=== PATIENT | female | born 1955 | race Caucasian/White ===

== ENCOUNTER 2023-11-11 02:09 | Inpatient (IN) | payer OTHER ==
[2023-11-11] VITALS (10 sets, daily range): BP systolic 109–153; BP diastolic 36–64; PULSE 99–139; RESP 15–45; O2SAT 90–100
[~2023-11-11] VITALS: Ht 175.3 cm; Wt 81.0 kg
[2023-11-11 05:27] LABS: Basophils # (auto) 0 10 ^3/uL (0-0.2); Eosinophils # (auto) 0 10 ^3/uL (0-0.8); Eosinophils % (auto) 0.1 % (0.0-7.0); Hemoglobin 12.4 g/dL (12.2-16.2); Lymphocytes # (auto) 0.4 10 ^3/uL (0.4-5.4); White Blood Cell 10.3 10^3/uL (4.4-10.8)
[2023-11-11] MEDS ORDERED: cefTRIAXone 1GM/50ML D5W 50 ML IV ONE (05:30)
[2023-11-11] MEDS ORDERED: ALBUTEROL SULF 2.5 MG/0.5ML(0.5%) NEB SOLN NEB ONE (05:30)
[2023-11-11] MEDS ORDERED: LACTATED RINGER'S 1,000 ML IV ONE (05:30)
[2023-11-11] MEDS ORDERED: DexAMETHasone SOD PHOS 10MG/1ML VIAL INJ IV ONE (05:30)
[2023-11-11] MEDS ORDERED: AZITHROMYCIN 500MG/ 250ML 250 ML IV ONE (05:30)
[2023-11-11] MEDS ORDERED: IPRATROPIUM BROM 0.5 MG/2.5ML INH SOL NEB ONE (05:30)
[2023-11-11 05:31] LABS: Basophils % (auto) 0.2 % (0.0-2.0); Hematocrit 36.8 % (36.0-46.0); Mean Corpuscular Hemoglobin 37.4 pg (28.0-32.0); Mean Corpuscular Hgb Conc. 33.8 g/dL (32.0-36.0); Mean Corpuscular Volume 110.5 fL (80.0-100.0); Monocytes # (auto) 0.6 10 ^3/uL (0-1.3); Monocytes % (auto) 5.4 % (0.0-12.0); Neutrophils # (auto) 9.3 10 ^3/uL (1.6-8.6); Neutrophils % (auto) 90.3 % (37.0-80.0); Red Blood Cells 3.33 10^6/uL (4.0-5.20); Red Cell Distribution Width 15.4 % (11.8-14.3)
[2023-11-11 05:36] LABS: Alanine Aminotransferase 31 U/L (7-40); Albumin 3.9 g/dL (3.2-4.8); Alkaline Phosphatase 82 U/L (46-116); Aspartate Aminotransferase 27 U/L (13-40); BUN/Creatinine Ratio 26.4 (10.0-20.0); Blood Urea Nitrogen 14 mg/dL (9-23); Calcium 8.8 mg/dL (8.7-10.4); Chloride 94 mmol/L (98-107); Glucose 159 mg/dL (74-106); Magnesium 2.4 mg/dL (1.6-2.6); Potassium 3.7 mmol/L (3.5-5.1); Sodium 140 mmol/L (136-145)
[2023-11-11 05:37] LABS: Bilirubin, Total 0.8 mg/dL (0.2-1.0); Total Protein 6.1 g/dL (5.7-8.2)
[2023-11-11 06:06] LABS: Anion Gap 5.99999 (5-15); Carbon Dioxide > 40 mmol/L (20-30)
[2023-11-11 06:47] LABS: Macrocytosis Marked; Platelet Estimate Adequate
[2023-11-11 06:48] LABS: Anisocytosis Slight; Target Cell FEW
[2023-11-11] MEDS ORDERED: ONDANSETRON HCL 4 MG/2 ML VIAL IV PRN (07:15)
[2023-11-11] MEDS ORDERED: IPRATROPIUM BROM 0.5 MG/2.5ML INH SOL NEB PRN (07:15)
[2023-11-11] MEDS ORDERED: NITROGLYCERIN 0.4 MG SL TAB SL PRN (07:15)
[2023-11-11] MEDS ORDERED: ACETAMINOPHEN 325 MG TAB PO PRN (07:15)
[2023-11-11] MEDS ORDERED: MORPHINE SULFATE INJ 2 MG/ml SYRG IV PRN (07:15)
[2023-11-11] MEDS ORDERED: ALBUTEROL SULF 2.5 MG/0.5ML(0.5%) NEB SOLN NEB PRN (07:15)
[2023-11-11 08:32] LABS: INR 0.98 (0.9-1.15); Partial Thromboplastin Time 22.9 SEC (24.5-34.5); Prothrombin Time 10.3 sec (9.3-11.8)
[2023-11-11 08:46] LABS: Base Excess 17.2 mmol/L (-2.0-2.0)
[2023-11-11] MEDS ORDERED: cefTRIAXone 1GM/50ML D5W 50 ML IV SCH (09:00)
[2023-11-11 09:58] LABS: Urine Bacteria FEW /hpf (None Seen); Urine Blood Negative /uL (Negative); Urine Clarity Clear (Clear); Urine Color Yellow (Yellow); Urine Hyaline Cast FEW /lpf (0 - 2); Urine Mucus FEW (None Seen); Urine Protein, UAD 1+ (Negative); Urine Specific Gravity 1.018 (1.001-1.035); Urine Urobilinogen Normal (Negative); Urine WBC 2 /hpf (0 - 5); Urine pH 5.5 (5.0-8.0)
[2023-11-11] MEDS ORDERED: ENOXAPARIN SOD 40 MG/0.4 ML SYRINGE SC SCH (10:00)
[2023-11-11] MEDS: methylPREDNISolone SOD SUCC 40 MG/ML VL IV SCH ×2 (10:00→22:42)
[2023-11-11] MEDS ORDERED: FUROSEMIDE 20 MG TAB PO SCH (10:00)
[2023-11-11] MEDS ORDERED: PANTOPRAZOLE 40 MG/10 ML VIAL INJ IV ONE (11:45)
[2023-11-11] MEDS ORDERED: VANCOMYCIN PER PHARMACY 0 MG IV SCH (11:45)
[2023-11-11] MEDS ORDERED: VANCOMYCIN 1GM/200ML 250 ML IV ONE (13:15)
[2023-11-11 14:01] LABS: Base Excess 17.3 mmol/L (-2.0-2.0)
[2023-11-11] MEDS ORDERED: FUROSEMIDE 20 MG/2 ML VIAL IV ONE ×2 (17:15→19:00)
[2023-11-11] MEDS ORDERED: hydrALAZINE HCL 20 MG/ML VL IV PRN (17:15)
[2023-11-11] MEDS ORDERED: VANCOMYCIN 1GM/200ML 250 ML IV SCH (18:00)
[2023-11-11 19:38] LABS: Hematocrit 39.4 % (36.0-46.0); Hemoglobin 13.1 g/dL (12.2-16.2); Mean Corpuscular Hemoglobin 36.5 pg (28.0-32.0); Mean Corpuscular Hgb Conc. 33.3 g/dL (32.0-36.0); Mean Corpuscular Volume 109.7 fL (80.0-100.0); Red Cell Distribution Width 14.8 % (11.8-14.3); White Blood Cell 15.9 10^3/uL (4.4-10.8)
[2023-11-11 19:40] LABS: Basophils % (manual) 0 (0.0-2.0); Blast Cells 0; Eosinophils % (manual) 0 (0-7); Metamyelocytes % 0; Myelocytes % 0; Promyelocytes % 0; Reactive Lymphocytes 0
[2023-11-11 19:51] LABS: Alanine Aminotransferase 28 U/L (7-40); Albumin 4.3 g/dL (3.2-4.8); Alkaline Phosphatase 84 U/L (46-116); Aspartate Aminotransferase 32 U/L (13-40); BUN/Creatinine Ratio 19.3 (10.0-20.0); Bilirubin, Total 0.8 mg/dL (0.2-1.0); Blood Urea Nitrogen 11 mg/dL (9-23); Calcium 8.9 mg/dL (8.7-10.4); Chloride 89 mmol/L (98-107); Glucose 190 mg/dL (74-106); Potassium 3.8 mmol/L (3.5-5.1); Sodium 138 mmol/L (136-145)
[2023-11-11 19:54] LABS: Anion Gap 8.99999 (5-15)
[2023-11-11 19:55] LABS: Carbon Dioxide > 40 mmol/L (20-30)
[2023-11-11 20:12] LABS: Band Neutrophils % (manual) 13; Lymphocytes % (manual) 2 (10.0-50.0); Monocytes % (manual) 8 (0-12)
[2023-11-11 20:14] LABS: Platelet Estimate Adequate
[2023-11-11 20:29] LABS: Base Excess 22.9 mmol/L (-2.0-2.0)
[2023-11-11] MEDS ORDERED: ATORVASTATIN 20 MG TAB PO SCH (22:00)
[2023-11-11] MEDS ORDERED: PHENYLEPHRINE IV 250 ML IV SCH (22:30)
[2023-11-12] VITALS: TEMP 99.2
[2023-11-12 00:25] VITALS: BP 96/36; PULSE 121; O2SAT 92
[2023-11-12] MEDS ORDERED: LORazepam 2MG/ML-1ML VIAL IV ONE (01:15)
[2023-11-12] MEDS ORDERED: MIDAZOLAM DRIP 50 mg/50mL 50 ML IV SCH (01:30)
[2023-11-12] MEDS ORDERED: MIDAZOLAM DRIP 50 mg/50mL 50 ML IV ONE (01:44)
[2023-11-12 02:00] VITALS: PULSE 123; RESP 44; O2SAT 91
[2023-11-12 02:01] VITALS: BP 69/31
[2023-11-12] MEDS ORDERED: cefTRIAXone 1GM/50ML D5W 50 ML IV SCH (09:00)
[2023-11-12] MEDS ORDERED: AZITHROMYCIN 500MG/ 250ML 250 ML IV SCH (10:00)
[2023-11-12] MEDS ORDERED: PANTOPRAZOLE 40 MG/10 ML VIAL INJ IV SCH (10:00)
== END 2023-11-12 02:10 | DRG 91 ==
LOC: ER 02:09 → EDBD 02:09 → TELE 07:17
PROVIDERS: ADMIT Nurse Practitioner; ATTEND Internal Medicine
PROC: 5A09357 Assistance with Respiratory Ventilation, Less than 24 Consecutive Hours, Continuous Positive Airway Pressure (ICD-10-PCS; principal; 2023-11-11)
DX: G92.8 Other toxic encephalopathy (principal); J15.69 Pneumonia due to other Gram-negative bacteria; J96.21 Acute and chronic respiratory failure with hypoxia; I50.42 Chronic combined systolic (congestive) and diastolic (congestive) heart failure; J44.0 Chronic obstructive pulmonary disease with (acute) lower respiratory infection; Z66 Do not resuscitate; Z85.118 Personal history of other malignant neoplasm of bronchus and lung; Z92.21 Personal history of antineoplastic chemotherapy; Z92.3 Personal history of irradiation
CPT/HCPCS: 36415; 36600; 71045; 80053; 81001; 82805; 83735; 83880; 84484; 85007; 85025; 85027; 85379; 85610; 85730; 93005; 93306; 94640; 94660; 96365; 96367; 96372; 96375; 99291; C9113; G0378; J1100; J2250; J2405